=== PATIENT | male | born 1955 | race Caucasian/White ===

== ENCOUNTER 2024-04-23 09:13 | Emergency (ER) | payer MEDICARE, OTHER, SELFPAY ==
[2024-04-23 09:22] VITALS: BP 123/72; PULSE 72; RESP 16; TEMP 36.2; O2SAT 98
--- NOTE | 2024-04-23 09:29 | ED_ITS ---
HPI - Ear Problem General Chief complaint: Ear Stated complaint: Ear Pain Time Seen by Provider: 04/23/24 09:25 Source: patient Mode of arrival: ambulatory Limitations: no limitations History of Present Illness HPI Narrative: Hung is a 68-year-old male patient presenting to the clinic today with complaints of decreased hearing in his left ear. He reports he had COVID a month ago and has recently gotten over the cough and the congestion however this morning he noticed he had hearing loss in the left ear. He denies any ear pain at this time. He denies any fevers, chills, or body aches. Related Data Home Medications Medication Instructions Recorded Confirmed No Home Medications 04/23/24 04/23/24 Allergies Allergy/AdvReac Type Severity Reaction Status Date / Time Penicillins Allergy Unknown Rash Verified 02/11/24 13:27 Review of Systems Review of Systems: Pertinent positives per HPI. Patient denies any fever, chills, rash, headache, visual changes, dizziness, cough, runny nose, sore throat, shortness of breath, chest pain, palpitations, nausea, vomiting, diarrhea, constipation, abdominal pain, or any urinary issues. FORMERLY [facility], [facility] Past Medical History Medical History Acid reflux Annual physical exam Iron deficiency Skin tag Surgical History Surgical History H/O colonoscopy 2018 History of lithotripsy History of vasectomy Family History Family History Father Heart disease Other Hypertension Social History Social History Social History: Pt is very confident in filling out medical forms. Pt has not received assistance in the last 12 months. Smoking status: Never smoker Alcohol intake: current Substance use: never Do You Feel Safe in your Home?: Yes Lack of Transportation: No Lack of Food: Never True Current Housing: I Have Housing Concerned About Future Housing: No Difficulty Paying Gas/Electric Bills: No Difficulty Paying for Meds: No Currently Unemployed: No Education: Master's Degree or Higher Difficulty w/ Childcare or Family Care: No Living arrangements: with family Occupation/Education: retired Agree to blood products: Yes Comments At the time of my signature, I reviewed and agree with the nursing past medical, surgical, social, and family history. There is no relevant family history pertinent to the patient complaint. Exam Narrative: General: Well-developed, well nourished, in no apparent distress Head: Normocephalic, atraumatic Eyes: Pupils equally round and reactive to light bilaterally, EOM intact, sclera and conjunctive clear, no discharge, lids normal Ears: TMs intact and clear, right ear canal ceruminous, left ear canal impacted with cerumen, irrigation was performed to the left ear after debrox drops instilled, no drainage, grossly hearing normal. Nose: Nares patent, no discharge, no inflammation, no sinus tenderness. Mouth: Oropharynx without lesions or masses, good dentition, MMM. Neck: Supple, trachea midline, no enlargement of anterior or posterior cervical nodes, no thyroid masses or goiter palpable. Cardio: Regular rate and rhythm, s1 and s2 normal, no murmur appreciated. Resp: Clear to auscultation bilaterally anteriorly and posteriorly, no rhonchi, rales, wheezing or rubs Course Course Emergency Course: Portions of this record may have been created with voice recognition software. Level of Care: Express Care Visit Vital Signs Vital signs: Vital Signs Temperature 36.2 C L 04/23/24 09:22 Pulse Rate 72 04/23/24 09:22 Respiratory Rate 16 04/23/24 09:22 Blood Pressure 123/72 04/23/24 09:22 Pulse Oximetry 98 04/23/24 09:22 Temperature 36.2 C L 04/23/24 09:22 Pulse Rate 72 04/23/24 09:22 Respiratory Rate 16 04/23/24 09:22 Blood Pressure 123/72 04/23/24 09:22 Pulse Oximetry 98 04/23/24 09:22 Vital signs reviewed Procedures Ear Wax Removal Left Ear: Ear Wax Removal Date: 04/23/24 Cerumenolytic Used: other (Debrox) Results: Re-examined: cerumen removed completely TM Examination: TM(s) intact, normal appearance Ear Canal Exam: atraumatic Patient Tolerated Procedure: well and no complications Complications: no problems Technique: ear canal irrigated and ear canal curetted Additional Comments: Verbal consent obtained for ear irrigation. Risk and benefits explained and patient voiced understanding. Ear irrigation performed using an elephant ear and spray water bottle. Mixture of 1/2 peroxide 1/2 water used to irrigate ear canal. Cerumen impaction cleared and TM visualized without redness. Grossly hearing normal. Patient tolerated procedure well Medical Decision Making MDM Narrative Medical decision making narrative: At the time of visit patient is resting comfortably on the exam table. Patient appears to be nontoxic. Procedures: Ear irrigation was performed to the left ear in the clinic today. Plan: Cerumen impaction removed with irrigation/use of lighted curette assess fully. Patient's hearing improved in the left ear. Supportive measures were discussed with the patient and they voiced understanding discharge instructions and agrees to treatment plan. Return precautions reviewed Differential Diagnosis Differential Diagnosis: Otitis media, otitis externa, eustachian tube dysfunction, cerumen impaction, upper respiratory infection, serous otitis Vital Signs Vital Signs: Vital Signs Temperature 36.2 C L 04/23/24 09:22 Pulse Rate 72 04/23/24 09:22 Respiratory Rate 16 04/23/24 09:22 Blood Pressure 123/72 04/23/24 09:22 Pulse Oximetry 98 04/23/24 09:22 Temperature 36.2 C L 04/23/24 09:22 Pulse Rate 72 04/23/24 09:22 Respiratory Rate 16 04/23/24 09:22 Blood Pressure 123/72 04/23/24 09:22 Pulse Oximetry 98 04/23/24 09:22 Discharge Plan Discharge Clinical Impression: Cerumen impaction Qualifiers: Laterality: left Qualified Code(s): H61.22 - Impacted cerumen, left ear Patient Disposition: Home, Self-Care Condition: Stable Instructions: Antibiotic Form Additional Instructions: Ear irrigation was performed to the left ear canal today and was successful. May instill 4 drops of Debrox in to the ear canals nightly for 3 consecutive nights-may do this every month May irrigate ears using half warm water and peroxide mixture-use bulb syringe or may use the shower head to irrigate ears Follow-up with your primary care doctor as needed Prescriptions: No Action No Home Medications Follow-up/Referrals: Mirna Patel PA-C [Primary Care Provider] - Time of Disposition: 09:59 Quality NIHSS Nursing Documentation ED NIHSS nursing documentation: reviewed/agree
--- NOTE | 2024-04-23 09:48 | PC.NURSE ---
ear drop given per order unable to scan barcode.
== END 2024-04-23 10:09 | disposition home or self-care (01) ==
PROVIDERS: Emergency Provider Nurse Practitioner Family; PCP Physician Assistant Medical
DX: H61.22 Impacted cerumen, left ear (principal); K21.9 Gastro-esophageal reflux disease without esophagitis; Z98.52 Vasectomy status
CPT/HCPCS: 69209; 99212; A9270; G0463